=== PATIENT | male | born 1945 ===

== ENCOUNTER 2024-12-29 08:01 | Inpatient (IN) | payer OTHER, SELFPAY ==
--- NOTE | 2024-11-27 10:47 | CM ---
Addendum entered by Opal Barkley RN 12/01/24 11:45:
Late Note from 11/26
Cm spoke with patient via live telephone. CM confirmed demographics. Patient lives with . Patient does not have a history of VN or SNF. Patient has a cane, walker and grab bar in shower. Patient is active with his PCP. Patient uses [facility] for
medication services.
Patient plans to use an outpatient PT close to him in [facility], but he cannot remember the name of it. Patient will call for appointment.
CM will remain available as needed.
Original Note:
CM received call from patient requesting information on pre admission testing appointments. CM explained a loan review manager will call in about two weeks. Patient was appreciative for information.
[2024-12-14 14:24] VITALS: BMI 28.8
[2024-12-14 14:51] LABS: Hematocrit 39.3 % (39.0-52.0); Hemoglobin 13.2 g/dL (13.0-18.0); Mean Corp Hgb Conc. 33.6 g/dL (33.0-37.0); Mean Corpuscular Volume 84.9 fL (80.0-94.0); Platelet Count 182 10^3/uL (130-400); Red Cell Dist. Width 14.6 % (11.5-14.5)
[2024-12-14 14:53] VITALS: BMI 28.8
[2024-12-14 16:18] LABS: ALT (SGPT) 21 U/L (0-50); AST (SGOT) 24 U/L (17-59); Albumin 4.4 g/dl (3.5-5.0); Alkaline Phosphatase 76 U/L (38-126); Blood Urea Nitrogen 27 mg/dl (9-20); Calcium 9.7 mg/dl (8.4-10.2); Carbon Dioxide 27 mmol/L (22-30); Chloride 106 mmol/L (98-107); Estimated Creatinine Clearance 59 ml/min; Glucose 107 mg/dl (70-99); Potassium 4.1 mmol/L (3.5-5.1); Sodium 142 mmol/L (135-145); Total Protein 7.8 g/dl (6.3-8.2); eGFR > 60.00
[2024-12-14 17:12] LABS: C-Reactive Protein 36.70 mg/L (0.0-10.00)
[2024-12-15 08:20] LABS: Glycohemoglobin (HgbA1c) 5.2 % (4.0-5.6)
--- NOTE | 2024-12-18 08:04 | SLEEP.APNEA ---
Sleep Apnea Order
-
Patient screened as High Risk for Sleep Apnea on Stop Bang Questionnaire. Patient referred to [facility] for Pre-Study.

Name: MILTON MEDRANO
: 1945
Home Phone: Use [email or web address] instead
Cell Phone: [f_Reg Other Phone]
Work Phone:
Address: [address] [place] [address]
City: [place]
State: [place]
Zip: [f_[facility] Zip]
Family Physician: Nehemiah Izquierod MD
Height 5 ft 11 in
Actual Weight 93.7 kg
Body Mass Index (BMI) 28.8
Ordering Provider: Kimberly Reyes PA-C
[2024-12-29] VITALS (15 sets, daily range): BP systolic 110–149; BP diastolic 59–77; PULSE 96; O2SAT 94; BMI 28.8
[2024-12-29] MEDS: CELEBREX 200 MG PO (08:34)
[2024-12-29] MEDS: NORMOSOL-R/PLASMALYTE-A 1000 IV ×2 (08:34→17:01)
[2024-12-29] MEDS: TYLENOL 650 MG PO ×4 (08:34→23:22)
--- NOTE | 2024-12-29 10:19 | W.PN.UPDATE ---
Update Note
Progress Note Update
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
DVT prophylaxis - continuation of home ASA, b/l venous foot pumps
HTN - + parameters - monitor BP
CAD/NE, 2010, status post PCI with RCA and left circumflex stent
Aortic stenosis, status post TAVR 09/2024; on Aspirin and Plavix
- ASA continued w/o interruption
- Plavix to be resumed POD 1 if hemodynamically stable
Chronic kidney disease stage 3 - minimize nephrotoxins
BPH - monitor voids
- Continue home Finasteride and Flomax. Extra dose of Flomax ordered if indicated
Elevated CRP pre-operatively - surgeon notified pre-op
- Of note, WBC and ESR WNL. Pt asymptomatic
Daily alcohol - 1 glass of wine/nightly reported
- Monitor for potential s/sx of withdrawal
OA, s/p R TKA, 06/2023, and L TKA, 2014, at an outside facility
HLD
Aortic atherosclerosis
Mild mitral regurgitation
Mild tricuspid regurgitation
Renal cysts
Mild scoliosis
History of tobacco abuse
[2024-12-29] MEDS: DILAUDID 0.25 MG IV (13:12)
--- NOTE | 2024-12-29 13:15 | OR.RPT ---
Operative Report
Operative Report
Orthopaedic Surgery Operative Note
DATE OF OPERATION: 12/29/2024
PREOPERATIVE DIAGNOSES: Right TKA arthrofibrosis
POSTOPERATIVE DIAGNOSES: Same
OPERATION PERFORMED: Right revision TKA, femoral component and tibial surface
SURGEON: Ricardo Nazario MD
ASSISTANTS: Jean-Claude Pérez PA-C who helped with patient and limb positioning and retraction
ANESTHESIA: Spinal
COMPLICATIONS: None.
ESTIMATED BLOOD LOSS: 40mL
DRAINS: None
TOURNIQUET TIME: 91minutes.
EXPLANTS:
- Chowdhury and Nephew Journey CR femur, size 7
- Chowdhury and Nephew dished articular surface, size 10mm
IMPLANTS:
- Chowdhury and Nephew Legion Revision Femur, size 7
- Chowdhury and Nephew Legion 14mm x 120mm femoral stem
- Chowdhury and Nephew Articular surface, PS, 11mm
- Chowdhury and nephew distal medial augment x1, 5mm
- Ananya cement restrictor; medium
INDICATIONS:
[id number] with a history of right total knee arthroplasty performed June 2023 at [facility]. His post operative course was complicated by stiffness in extension and secondary anterior knee pain. Xrays showed well fixed implants. His exam showed about
15 degree flexion contracture. He had been working with physical therapy on extension exercises without improvement. He was frustrated with his pain and quality of life. Infection work-up was negative. I discussed treatment options with such as
continuing physical therapy and rehab. We discussed the option of revision surgery. Shared decision was to proceed with revision TKA. We discussed I would try to downsize the liner and remove posterior soft tissue and see if that fixed his flexion
contracture. We discussed the possiblity of revision of one or both of the femoral and tibial components. The femoral component had some flexion, so femoral revision to more extended postion could be an option. The patient understood the risks which
included, but were not limited to, bleeding, fracture, infection, failure to relieve pain, more pain than preop, damage to blood vessels and nerves, need for reoperation, mechanical failure of the implants, wound healing problems, stiffness,
instability, blood clot, pulmonary embolism, myocardial infarction, pneumonia, arrhythmia, CVA, and . The patient accepted these risks and wished to proceed. All questions were answered, and informed consent was obtained.
PROCEDURE IN DETAIL: The patient was identified in the preoperative holding area. The right knee was identified as the operative site. The patient was taken in the operating room and placed in a supine position on the operating table. Spinal
anesthesia was performed. No improvement in knee extension was noted. IV antibiotics and tranexamic acid were administered. An SCD was placed on the nonoperative lower extremity. A well-padded tourniquet was placed on the proximal thigh. All bony
prominences were well padded. The operative leg was prepped and draped in the usual sterile fashion.
We performed a surgical time-out. An interarticular block was performed with 20mL of local anesthetic with epinephrine. The limb was exsanguinated with an Esmarch bandage, then the tourniquet was inflated to 250 mmHg. The prior midline incision was
excised. Dissection was carried down to the extensor mechanism and full thickness flaps were raised to aide in exposure. A medial parapatellar arthrotomy was performed. Healthy appearing synovial fluid was noted in the joint. Medial release was
performed. Scar tissue was excised from the anterior portion of the tibia posterior to the patellar tendon. Care was taken not to damage the extensor mechanism. The knee was flexed and the patella was not everted. Medial and lateral gutters were
exposed with care not to damage collateral ligaments.
The polyethylene spacer was removed with an osteotome. No significant wear of polyethylene component. Posterior capsule was removed, and a posterior release was performed with a helms from the back fo the femur and tibia. A 9mm spacer was inserted (a
10mm was removed) and the patient had slight improvement in extension, about to 10 degrees, but not to enough extension that the axial traction test would produce a stable knee. Decision was to revise the femur with goal to extend the femoral
component.
The femoral surfaces were exposed with osteotomes and rongeurs. Flexible osteotome was used circumferentially around the femoral component at the metal-cement interface. It was fell fixed. Once loose, the femoral component was removed with minimal
bone loss. There was some bone loss centrally about the medial femoral condyle which was contained. Bone bone surfaces were debrided of any remaining cement. The tibia was inspected and noted to be well fixed and well aligned.
A drill was used to identify the medullary canal. The femoral canal was reamed sequentially in line with mechanical axis until good cortical purchase was achieved. The distal femoral cutting guide was fixed to the reamer, and a 1mm distal femoral
cut was performed to freshen the surface and permit a more extended distal surface. The 4:1 cutting guide was applied. This was used to cut the anterior femoral surface and anterior chamfur into more extended position. The posterior femoral condyles
were cut along their distal surface. Rotation was set in line with the transepicondylar axis prior to cutting and parallel to tibial component.
Trial femur was impacted into place and need for augments was assessed. There was good central support of the component, so no cone was used on the femur. Rotation was assessed and was found to be in line with the transcondylar axis. In flexion,
the femoral rotation was parallel with the tibial surface. The box was cut. Trial femur was assembled and was impacted into place. The knee was trialed with sequential articular surfaces with good balance in flexion and extension. The knee had much
improved extension. The femoral size was 7 consistent with the removed component. The femoral component was not able to be upsized due to the size 6 tibia, but the 7 had balanced flexion. The patella tracked centrally without need for further
releases. The patella components was inspected and noted to be without wear and without loosening.
The trial components were removed. The femoral components were assembled on the back table. A cement restrictor was placed into the femoral canal. Cement was mixed and was applied while sticky to the femoral surfaces as well as stems. The femoral
canals were irrigated and cement was pressurized into the canal. The components were impacted into place. A trial articular surface was placed. The tourniquet was let down and meticulous hemostasis was achieved. A 3-minute dilute Betadine soak
was performed. I copiously irrigated with 3 L of saline. Once the cement was polymerized, the knee was trialed and the final articular surface was selected. The knee was loose in flexion and extension with the 9mm spacer, so the 11mm spacer was
selected and was stable with well maintained extension. The axial load test did not cause the knee to flex. The knee had good collateral support with PS spacer, so this was used instead of LCCK spacer. Excess cement had been removed and any
remaining flecks were removed. The final articular surface was inserted. The knee was balanced in both flexion extension and the patella tracked centrally. A fresh drape was applied to the surgical field.
The arthrotomy was closed with 0-PDS. Once closed, an interarticular block was performed with 0.25% bupivacaine with epi. The deep dermal layer was closed with 2-0 PDS, and the subcuticular skin was closed with 3-0 monocryl. A Dermabond Prineo
dressing was applied to the skin in full flexion. Once this was completely dry, a sterile waterproof dressing was applied.
The anesthesia team performed an adductor canal block in the OR at the beginning of the case. The patient awoke from anesthesia without any difficulties. The sponge and instrument counts were correct x2 at the end of the case.
Zachery Nazario MD
[2024-12-29] MEDS: ROXICODONE 5 MG PO ×3 (13:47→23:20)
--- NOTE | 2024-12-29 15:30 | PTCARENOTE ---
Pt received from the PACU via bed. Transport was w/o incident. Pt is AAOx3, HRR, lungs are clear, resp. easy. Pulse ox 96% [id number] nc. Pt's right knee with Mepilex dressing C/D/I, no drainage noted at this time. Pt denies pain or nausea. VSS, Pt is
afebrile. Pt instructed on plan of care. Pt verbalized understanding of instructions. Call noland is within reach.
[2024-12-29] MEDS: ANCEF 5 IV (17:00)
[2024-12-29] MEDS: LOW STRENGTH ASPIRIN 81 MG PO (17:00)
[2024-12-29] MEDS: FLOMAX 0.4 MG PO (17:00)
[2024-12-29] MEDS: CRESTOR PO (17:01)
[2024-12-29] MEDS: COLACE 100 MG PO (20:30)
[2024-12-29] MEDS: SENOKOT 17.2 MG PO (20:30)
[2024-12-29] MEDS: DECADRON 4 MG PO (20:30)
[2024-12-29] MEDS: BACTROBAN 2% OINTMENT 1 APPLIC NASAL (20:30)
[2024-12-29] MEDS: NEURONTIN 300 MG PO (22:00)
[2024-12-29] MEDS: PEPCID 20 MG PO (22:00)
[2024-12-29] MEDS: PROSCAR 5 MG PO (22:00)
[2024-12-30] MEDS: ANCEF 5 IV (01:10)
[2024-12-30 03:10] VITALS: BP 131/67
[2024-12-30] MEDS: TYLENOL 650 MG PO ×3 (03:40→12:03)
[2024-12-30] MEDS: FLOMAX 0.4 MG PO (04:30)
[2024-12-30 07:30] VITALS: BP 130/74
[2024-12-30] MEDS: CRESTOR 40 MG PO (08:14)
[2024-12-30] MEDS: COLACE 100 MG PO (08:14)
[2024-12-30] MEDS: BACTROBAN 2% OINTMENT 1 APPLIC NASAL (08:15)
[2024-12-30] MEDS: SENOKOT 17.2 MG PO (08:15)
[2024-12-30] MEDS: DECADRON 4 MG PO (08:15)
[2024-12-30] MEDS: ROXICODONE 5 MG PO (08:19)
--- NOTE | 2024-12-30 09:43 | W.PN.ORTHO ---
Today's Communication / Plan
-
Continue to monitor voiding.
Await PT and OT recs.
D/c later today if remaining clinically stable.
Assessment
.
Distal Motor Intact: Yes
Dressing:
Clean, dry and intact.
Assessment:
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
DVT prophylaxis - continuation of home ASA, b/l venous foot pumps
HTN - + parameters - BPs overall stable
CAD/[place], 2010, status post PCI with RCA and left circumflex stent
Aortic stenosis, status post TAVR 09/2024; on Aspirin and Plavix
- ASA continued w/o interruption
- Plavix to be resumed POD 1 since hemodynamically stable
Chronic kidney disease stage 3 - minimized nephrotoxins
BPH - urinary retention noted post-op requiring straight cath x2
- Pt states this 'may have happened' after his prior R TKA
- Continue home Finasteride and Flomax. Extra dose of Flomax given this AM
- Monitor PVRs
- Early mobility today as tolerated
- If still retaining, may need sands upon d/c. Would need voiding trial w/ routine urologist, Dr. Jaron Mckoy ([facility]). Pt aware to call for an appt if needed upon d/c
Elevated CRP pre-operatively - surgeon notified pre-op
- Of note, WBC and ESR WNL. Pt asymptomatic
Daily alcohol - 1 glass of wine/nightly reported
- No s/sx of withdrawal noted
OA, s/p R TKA, 06/2023, and L TKA, 2014, at an outside facility
HLD
Aortic atherosclerosis
Mild mitral regurgitation
Mild tricuspid regurgitation
Renal cysts
Mild scoliosis
History of tobacco abuse
Plan
.
Surgery / Date: Revision of R TKA w/ Dr Nazario 12/29/24
DVT Prophylaxis: Aspirin (w/ Plavix )
Activity:
Out of bed.
PT/OT
Discharge Plan: Home w/ Outpatient PT
Subjective
.
.:
Patient resting comfortably in bed.
R knee pain minimal w/ current pain meds.
Post-surgical urinary retention in the setting of BPH noted.
Vital Signs and Labs
.
Vital Signs and Labs:
Lab Results
12/14/24 13:10
12/14/24 13:10
Temp Pulse Resp BP Pulse Ox
98.4 F 72 16 130/74 94
12/30/24 07:30 12/30/24 07:30 12/30/24 07:30 12/30/24 07:30 12/30/24 07:30
Non-invasive Hgb result: 13.3
Physical Exam
-
HEENT: No pallor, cyanosis, or jaundice. Throat clear.
NECK: Supple. No JVD.
RESPIRATORY: Lungs clear to auscultation.
CVS: S1, S2 normal. RRR.� Soft murmur.
ABDOMEN: Soft, non-tender. No distension.
EXTREMITIES: Strength equal, no calf pain with palpation/dorsiflexion. Calves soft.
AUDIO VISUAL SECRETARY: AOx3. No focal deficits. financial intern grossly intact
--- NOTE | 2024-12-30 09:51 | CM ---
CM following re: discharge planning.
Reviewed pt's chart, met with pt.
Pt is a 79 year old male, admitted with primary dx of s/p Revision of R TKA w/ Dr Nazario 12/29/24. According to Orthopedic surgery, pt most likely will be discharged later this afternoon if remains clinically stable. Pt is aware, expressed his
agreement and pt stated his spouse will transport home. IMM reviewed, placed on chart, pt has a copy.
Pt reports he lives with spouse 2SH, 5 steps to enter, has 5 supportive children. 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 Pt reports he is known to [facility] outpatient therapy, has a script and pt stated he will
resume outpatient therapy at [facility] upon the discharge.
PCP: Nehemiah Izquierdo
Pharmacy: [facility]
D/C plan: home with [facility] outpatient therapy and family support. Spouse to transport.
[2024-12-30 10:37] VITALS: BP 142/70; PULSE 74
[2024-12-30] MEDS: PLAVIX 75 MG PO (10:51)
[2024-12-30 11:37] VITALS: BP 137/62
[2024-12-30 11:40] VITALS: BP 137/62; BP 144/68; PULSE 76; O2SAT 96
--- NOTE | 2024-12-30 13:26 | W.PN.UPDATE ---
Update Note
Progress Note Update
Patient still unfortunately having trouble urinating due to his underlying BPH and spinal anesthesia.
He is maxed out on daily Flomax. He has been taking his Finasteride w/o interruption.
Will place sands cath. Patient is able to be d/c with this.
He is aware to call his routine urologist, Dr. Jaron Mckoy, for a voiding trial if office upon d/c.
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
Given increased risk of UTI w/ indwelling cath, will Rx prophylactic Cefadroxil upon d/c.
--- NOTE | 2024-12-30 13:33 | W.DS.TRANS ---
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
-
Discharge Instructions:
Sleep Apnea Risk Intermediate
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
/ Dr Nazario 12/29/24
Diet Regular
Additional Diets Adequate hydration, minimize opioids, and wear
TEDs stockings to prevent low blood pressure/
dizziness.
Activity As tolerated,With Walker
Driving Restrictions Not until seen by your Dr
Bathing Restrictions OK to Shower
Other Services PT
Wound Care Leave dressing on until seen by surgeon's office
for follow-up in 2 weeks.
Instructions: How to Care for Your Andersen Catheter, Male
Stand-Alone Forms: Total Hip/Knee Replacement D/C
Changes to Home Medications: Yes
Discharge Medications:
DC Medications w/original date entered in [facility]
ascorbic acid (vitamin C) 1,000 mg tablet (Vitamin C) 1,000 mg PO DAILY Supplement 12/11/24
aspirin 81 mg tablet 81 mg PO DAILY Blood Clot Prevention/Tx 12/11/24
clopidogrel 75 mg tablet (Plavix) 75 mg PO DAILY Blood Clot Prevention/Tx 12/11/24
finasteride 5 mg tablet 5 mg PO HS BPH 12/11/24
krill oil 500 mg capsule 500 mg PO DAILY Supplement 12/11/24
Held on 12/30/24. Instructions: Resume on 01/05/25.
multivitamin 1 tab PO DAILY Supplement 12/11/24
rosuvastatin 40 mg tablet 40 mg PO DAILY High Cholesterol 12/11/24
vitamin B12 1,000 mcg-folic acid 400 mcg sublingual lozenge 1 romana sublingual DAILY Supplement 12/11/24
mupirocin 2 % topical ointment 1 applic intranasal BID #1 tube 12/14/24
Saccharomyces boulardii 250 mg capsule (Florastor) 250 mg PO BID #14 caps 12/30/24
acetaminophen 325 mg tablet 650 mg (2 x 325 mg) PO Q4HWA #30 tabs 12/30/24
amlodipine 10 mg tablet 10 mg PO DAILY Blood Pressure #1 tab 12/30/24
cefadroxil 500 mg capsule 500 mg PO BID #14 caps 12/30/24
dexamethasone 4 mg tablet 4 mg PO BID #5 tabs 12/30/24
docusate sodium 100 mg capsule 100 mg PO BID #30 caps 12/30/24
famotidine 20 mg tablet 20 mg PO HS #30 tabs 12/30/24
gabapentin 300 mg capsule 300 mg PO HS neuropathic pain/sleep #10 caps 12/30/24
hydrochlorothiazide 25 mg tablet 25 mg PO DAILY Blood Pressure #1 tab 12/30/24
losartan 100 mg tablet 100 mg PO DAILY Blood Pressure #1 tab 12/30/24
ondansetron HCl 4 mg tablet 4 mg PO Q6H PRN nausea and vomiting #30 tabs 12/30/24
oxycodone 5 mg tablet 5 - 10 mg (1 - 2 x 5 mg) PO Q6H PRN moderate-severe pain #30 tabs 12/30/24
sennosides 8.6 mg tablet (Gretel-fernandez) 17.2 mg (2 x 8.6 mg) PO BID #30 tabs 12/30/24
tamsulosin 0.4 mg capsule 0.4 mg PO BID #14 caps 12/30/24
Home Medication Changes
Saccharomyces boulardii 250 mg capsule (Florastor) 250 mg PO BID #14 caps 12/30/24
acetaminophen 325 mg tablet 650 mg (2 x 325 mg) PO Q4HWA #30 tabs 12/30/24
cefadroxil 500 mg capsule 500 mg PO BID #14 caps 12/30/24
dexamethasone 4 mg tablet 4 mg PO BID #5 tabs 12/30/24
docusate sodium 100 mg capsule 100 mg PO BID #30 caps 12/30/24
famotidine 20 mg tablet 20 mg PO HS #30 tabs 12/30/24
gabapentin 300 mg capsule 300 mg PO HS neuropathic pain/sleep #10 caps 12/30/24
ondansetron HCl 4 mg tablet 4 mg PO Q6H PRN nausea and vomiting #30 tabs 12/30/24
oxycodone 5 mg tablet 5 - 10 mg (1 - 2 x 5 mg) PO Q6H PRN moderate-severe pain #30 tabs 12/30/24
sennosides 8.6 mg tablet (Gretel-fernandez) 17.2 mg (2 x 8.6 mg) PO BID #30 tabs 12/30/24
tamsulosin 0.4 mg capsule 0.4 mg PO BID #14 caps 12/30/24
Pending Results: No
[2024-12-30 13:44] VITALS: BP 128/66
== END 2024-12-30 14:45 | disposition home or self-care (01) | DRG 465 ==
LOC: 2 SOUTH 08:01
PROVIDERS: ADMITTING PHYSICIAN Orthopaedic Surgery; FAMILY PHYSICIAN Internal Medicine; REFERRING PHYSICIAN Internal Medicine Cardiovascular Disease
PROC: 0SPC0NZ Removal of Patellofemoral Synthetic Substitute from Right Knee Joint, Open Approach (ICD-10-PCS; 2024-12-29)
PROC: 0SRC0N9 Replacement of Right Knee Joint with Patellofemoral Synthetic Substitute, Cemented, Open Approach (ICD-10-PCS; 2024-12-29)
DX: T84.82XA Fibrosis due to internal orthopedic prosthetic devices, implants and grafts, initial encounter (principal); M24.661 Ankylosis, right knee; Z96.653 Presence of artificial knee joint, bilateral; E78.5 Hyperlipidemia, unspecified; N18.30 Chronic kidney disease, stage 3 unspecified; I12.9 Hypertensive chronic kidney disease with stage 1 through stage 4 chronic kidney disease, or unspecified chronic kidney disease; I25.10 Atherosclerotic heart disease of native coronary artery without angina pectoris; I25.2 Old myocardial infarction; Z95.5 Presence of coronary angioplasty implant and graft; Z95.2 Presence of prosthetic heart valve; I35.0 Nonrheumatic aortic (valve) stenosis; N40.1 Benign prostatic hyperplasia with lower urinary tract symptoms; R33.8 Other retention of urine; Z79.02 Long term (current) use of antithrombotics/antiplatelets; Z79.82 Long term (current) use of aspirin; I70.0 Atherosclerosis of aorta; M41.9 Scoliosis, unspecified; Z87.891 Personal history of nicotine dependence
CPT/HCPCS: 36415; 73560; 80053; 83036; 85027; 85652; 86140; 86850; 86900; 86901; 87070; 97110; 97116; 97163; 97166; 97530; 97535